=== PATIENT | female | born 1950 | race Caucasian/White ===

== ENCOUNTER → 2018-08-01 09:07 | Outpatient (CLI) | payer MEDICARE, OTHER, SELFPAY ==
--- NOTE | 2018-08-01 | DI.ECHO.S_ITS ---
[place]---------+ [facility] +---------+ : : [address] : [address] [place] : : : : [id number] : : : : Phone: [phone]+ Echocardiogram Report + + :Name: BING VAUGHN Study Date: 08/01/2018 Height: 64 in : :[facility] Weight: 177 lb : : Gender: Female BSA: 1.9 m2 : :: 1950 Age: 67 yrs BP: 158/98 mmHg: :Reason For Study: Murmur : : Performed By: Lucia Massey : :Referring: MIGUEL WEBB L : + + Interpretation Summary 1) Normal left ventricular thickness, size, wall motion and systoilc function (EF 60-65%). 2) Normal right ventricular size and function grossly. 3) There is mild to moderate mitral regurgitation. 4) The right ventricular systolic pressure is estimated to be at least 42 mmHg based on an estimated right atrial pressure of 3 mm Hg. 5) No prior Echo available for comparison. Procedure: A two-dimensional transthoracic echocardiogram with color flow and Doppler was performed. The study quality was technically adequate. There is no prior echocardiogram noted for this patient. The patient was in normal sinus rhythm during the exam. Left Ventricle: The left ventricle is normal in size, wall thickness, and systolic function without any focal wall motion abnormalities. The ejection fraction is estimated to be 60-65%. Diastolic parameters suggest a pseudonormalization pattern, consistent with probable elevated filling pressures. Right Ventricle: The right ventricle grossly appears normal in size with probable normal systolic function. Atria: The left atrial size is normal. Right atrial size is normal. The interatrial septum is intact with no evidence for an atrial septal defect. Mitral Valve: The mitral valve leaflets appear borderline thickened, but open well. The mitral valve leaflets are mildly calcified. There is mild to moderate mitral regurgitation. Aortic Valve: The aortic valve is trileaflet. The aortic valve opens well. There is no aortic valve stenosis. No aortic regurgitation is present. Tricuspid Valve: The tricuspid valve leaflets are thin and pliable. There is mild tricuspid regurgitation. The right ventricular systolic pressure is estimated to be at least 42 mmHg based on an estimated right atrial pressure of 3 mm Hg. Pulmonic Valve: The pulmonic valve is normal in structure and function. There is no pulmonic valvular regurgitation. Great Vessels: The aortic root is normal size. The dimensions of the ascending aorta are normal. The IVC is of normal diameter and collapses greater than 50% with a sniff. This suggests a low right atrial pressure of 3 mm Hg. Pericardium/ Pleura There is no pericardial effusion. There is no pleural effusion. MMode/2D Measurements & Calculations LVIDd: 4.5 cm Ao root diam: 2.7 cm LVIDs: 2.9 cm Aortic Jxn: 2.6 cm FS: 34.6 % asc Aorta Diam: 3.0 cm EPSS: 0.65 cm Ao Arch Diam (Prox Trans): 2.4 cm IVSd: 0.87 cm LVPWd: 0.80 cm LV yates. diameter/BSA (cm/m^2): 2.4 LV sys. diameter/BSA (cm/m^2): 1.6 LA dimension: 3.3 cm RA long axis: 5.0 cm LA A2 area: 19.4 cm2 RA area: 15.1 cm2 LA A4 area: 19.1 cm2 RA vol: 39.2 ml LA length (vol): 5.2 cm RA : 21.1 ml/m2 LA vol: 60.2 ml IVC diam: 1.4 cm LA vol index: 32.4 ml/m2 RVDd major: 4.9 cm RVD1 (basal): 3.0 cm RVD2 (mid): 2.6 cm Doppler Measurements & Calculations Ao V2 max: 177.7 cm/sec MV E max tomas: 76.8 cm/sec Ao V2 mean: 112.0 cm/sec MV A max tomas: 103.2 cm/sec Ao max P.6 mmHg MV E/A: 0.74 Ao mean P.0 mmHg Med Peak E' Tomas: 6.2 cm/sec Ao V2 VTI: 39.1 cm E/E' med: 12.4 Lat Peak E' Tomas: 7.8 cm/sec E/E' lat: 9.9 E/e' average: 11.1 MV dec time: 0.24 sec MV P1/2t: 72.9 msec MR ERO: 0.14 cm2 TR max tomas: 292.9 cm/sec MV P1/2t max tomas: 77.2 cm/sec TR max P.4 mmHg MVA(P1/2t): 3.0 cm2 PA V2 max: 112.3 cm/sec PA V2 mean: 71.1 cm/sec PA mean P.4 mmHg PA Accel Time: 0.14 sec MR flow rate: 88.8 cm3/sec MR PISA radius: 0.60 cm Reading Physician:01:10 PM
--- NOTE | 2018-08-01 | DI.MG.S_ITS ---
BILATERAL DIGITAL SCREENING MAMMOGRAM 3D/2D WITH CAD: 08/01/2018 CLINICAL: Routine screening. Family history of breast cancer. Comparison is made to exams dated: 10/20/2016 mammogram, 07/01/2014 mammogram, 11/02/2016 mammogram, 11/02/2016 ultrasound, 05/12/2017 mammogram, and 05/12/2017 ultrasound - [facility]. The tissue of right breast is heterogeneously dense. This may lower the sensitivity of mammography. There are scattered fibroglandular elements in left breast. Current study was also evaluated with a Computer Aided Detection (CAD) system. There is 1 cm oval high density focal asymmetry with an indistinct margin in the left breast upper outer aspect middle depth. This is more prominent than on prior comparison exam. There are also 1.5 cm oval masses in the left breast central to the nipple anterior depth, which are more prominent than on prior comparison exam. IMPRESSION: INCOMPLETE: NEEDS ADDITIONAL IMAGING EVALUATION 1) The 1 cm oval high density focal asymmetry in the left breast upper outer aspect middle depth is indeterminate. Additional views with possible ultrasound are recommended. 2) The 1.5 cm oval masses in the left breast central to the nipple anterior depth may correspond to the cysts seen on comparison ultrasound, but appear more prominent than on prior comparison exams. Additional views with possible ultrasound are recommended. This exam was interpreted at Station ID: [id number]. NOTE: For mammograms, a report in lay terms will be sent to the patient. Approximately 15% of breast malignancies will not be visualized mammographically. In the management of a palpable breast mass, a negative mammogram must not discourage biopsy of a clinically suspicious lesion. Electronically Signed By: Kyle Redd M.D. ecl/:08/02/2018 07:32:55 letter sent: Additional Imaging Needed ACR BI-RADS Category 0: Incomplete 3340F
== END ==
PROVIDERS: PCP Nurse Practitioner Family; Visit Provider Nurse Practitioner Family
DX: Z12.31 Encounter for screening mammogram for malignant neoplasm of breast (principal); Z80.3 Family history of malignant neoplasm of breast; I08.1 Rheumatic disorders of both mitral and tricuspid valves; R01.1 Cardiac murmur, unspecified; M85.852 Other specified disorders of bone density and structure, left thigh; Z78.0 Asymptomatic menopausal state; E07.9 Disorder of thyroid, unspecified; Z90.722 Acquired absence of ovaries, bilateral; Z82.62 Family history of osteoporosis; Z87.891 Personal history of nicotine dependence
CPT/HCPCS: 77063; 77067; 77080; 93306

== ENCOUNTER → 2018-08-29 12:34 | Outpatient (CLI) | payer MEDICARE, OTHER, SELFPAY ==
--- NOTE | 2018-08-29 | DI.US.S_ITS ---
LIMITED ULTRASOUND OF LEFT BREAST: 08/29/2018 CLINICAL: Additional evaluation requested from prior study. Comparison is made to exams dated: 08/29/2018 mammogram, 08/01/2018 mammogram, and 05/12/2017 [facility]. Color flow and real-time ultrasound of the left breast 3 o'clock, and retroareolar regions were performed on the areas of interest. There is 2.7 cm x 0.9 cm x 1.9 cm oval cyst with debris with a smooth internal wall in the left breast central to the nipple anterior depth. This oval cyst with debris is hypoechoic with a well-defined boundary and internal echoes. This correlates with mammography findings. Color flow imaging demonstrates that there is no vascularity present. There also is 0.9 cm x 0.6 cm x 0.7 cm oval cyst with debris with a smooth internal wall in the left breast at 3 o'clock anterior depth. This oval cyst with debris is hypoechoic with a well-defined boundary and internal echoes. This correlates with mammography findings. Color flow imaging demonstrates that there is no vascularity present. IMPRESSION: PROBABLY BENIGN The 2.7 cm x 0.9 cm x 1.9 cm oval cyst with debris in the left breast central to the nipple anterior depth is consistent with a complicated cyst and is probably benign. A follow-up ultrasound in 6 months is recommended. The 0.9 cm x 0.6 cm x 0.7 cm oval cyst with debris in the left breast at 3 o'clock anterior depth is consistent with a complicated cyst and is probably benign. A follow-up ultrasound in 6 months is recommended. A follow-up ultrasound in 6 months is recommended to demonstrate stability. This exam was interpreted at Station ID: [id number]. Electronically Signed By: Markus barboza/erma:08/29/2018 17:25:56 letter sent: Followup Recommended Ultrasound BI-RADS: 3 Probably benign
--- NOTE | 2018-08-29 | DI.MG.S_ITS ---
UNILATERAL LEFT DIGITAL DIAGNOSTIC MAMMOGRAM 3D/2D WITH ADDITIONAL VIEWS: 08/29/2018 CLINICAL: Additional evaluation requested from prior study. Comparison is made to exams dated: 08/01/2018 mammogram, 05/12/2017 mammogram, 11/02/2016 mammogram, and 10/20/2016 mammogram - [facility]. The tissue of left breast is heterogeneously dense. This may lower the sensitivity of mammography. There is 2.5 cm oval equal density mass with an obscured and circumscribed margin in the left breast central to the nipple anterior depth. There also is 0.9 cm oval equal density mass with an obscured and circumscribed margin in the left breast at 3 o'clock anterior depth. No other significant masses or calcifications are seen in the breast. IMPRESSION: INCOMPLETE: NEEDS ADDITIONAL IMAGING EVALUATION The 2.5 cm oval equal density mass in the left breast central to the nipple anterior depth is indeterminate. An ultrasound is recommended. The 0.9 cm oval equal density mass in the left breast at 3 o'clock anterior depth is indeterminate. An ultrasound is recommended. This exam was interpreted at Station ID: [id number]. NOTE: For mammograms, a report in lay terms will be sent to the patient. Approximately 15% of breast malignancies will not be visualized mammographically. In the management of a palpable breast mass, a negative mammogram must not discourage biopsy of a clinically suspicious lesion. Electronically Signed By: Markus barboza/erma:08/29/2018 13:40:54 letter sent: Need Ultrasound ACR BI-RADS Category 0: Incomplete 3340F
== END ==
PROVIDERS: PCP Nurse Practitioner Family; Visit Provider Nurse Practitioner Family
DX: R92.8 Other abnormal and inconclusive findings on diagnostic imaging of breast (principal); N60.02 Solitary cyst of left breast
CPT/HCPCS: 76642; 77065; G0279

== ENCOUNTER → 2019-09-17 13:06 | Outpatient (CLI) | payer MEDICARE, OTHER, SELFPAY ==
--- NOTE | 2019-09-17 | DI.US.S_ITS ---
ULTRASOUND OF LEFT BREAST: 09/17/2019 CLINICAL: 6 month follow-up of cysts. Comparison is made to exams dated: 09/17/2019 mammogram, 08/29/2018 ultrasound, 08/29/2018 mammogram, 08/01/2018 mammogram, 05/12/2017 ultrasound, and 05/12/2017 mammogram - [facility]. Color flow and real-time ultrasound of the left breast were performed. Mendoza scale images of the real-time examination were reviewed. Redemonstration of a 2.7 cm x 2.3 cm x 1.6 cm oval cyst with mobile debris with a smooth internal wall in the left breast central to the nipple anterior depth. This oval cyst with debris is hypoechoic with a well-defined boundary, internal echoes, and posterior acoustic enhancement. This abnormality is increased in size and correlates with mammography and prior ultrasound findings. Color flow imaging demonstrates that there is no vascularity present. There also is a 0.8 cm x 0.6 cm x 0.4 cm oval cyst with debris with a smooth internal wall in the left breast at 3 o'clock anterior depth 2 cm from the nipple. This oval cyst with debris is hypoechoic with a well-defined boundary and internal echoes. This abnormality is decreased in size and correlates with mammography findings. Color flow imaging demonstrates that there is no vascularity present. IMPRESSION: PROBABLY BENIGN The 2.7 cm x 2.3 cm x 1.6 cm oval cyst with debris in the left breast central to the nipple anterior depth is consistent with a complicated cyst and is probably benign. The 0.8 cm x 0.6 cm x 0.4 cm oval cyst with debris in the left breast at 3 o'clock anterior depth is consistent with a complicated cyst and is probably benign. A follow-up left mammogram and a left ultrasound in 6 months is recommended to demonstrate stability. This exam was interpreted at Station ID: [id number]. Electronically Signed By: Jose C Cantrell M.D. aty/:09/17/2019 15:02:24 letter sent: Followup Recommended Ultrasound BI-RADS: 3 Probably benign
--- NOTE | 2019-09-17 | DI.MG.S_ITS ---
BILATERAL DIGITAL DIAGNOSTIC MAMMOGRAM 3D/2D: 09/17/2019 CLINICAL: One year follow up. Comparison is made to exams dated: 08/29/2018 mammogram, 08/01/2018 mammogram, 05/12/2017 mammogram, 11/02/2016 mammogram, and 10/20/2016 mammogram - [facility]. The tissue of both breasts is heterogeneously dense. This may lower the sensitivity of mammography. There are benign diffuse calcifications in both breasts that are not significantly changed. There is a 2.5 cm oval equal density mass with an obscured and circumscribed margin in the left breast central to the nipple anterior depth. This is more prominent and increased in size. There also is a 0.6 cm oval equal density mass with an obscured and circumscribed margin in the left breast at 3 o'clock anterior depth. This is less prominent and decreased in size. No other significant masses, calcifications, or other findings are seen in either breast. IMPRESSION: INCOMPLETE: NEEDS ADDITIONAL IMAGING EVALUATION The enlarging 2.5 cm oval equal density mass in the left breast central to the nipple anterior depth is indeterminate. An ultrasound is recommended. The 0.6 cm oval equal density mass in the left breast at 3 o'clock anterior depth is indeterminate. An ultrasound is also recommended. The recommended ultrasound is scheduled to immediately follow this study. This exam was interpreted at Station ID: [id number]. NOTE: For mammograms, a report in lay terms will be sent to the patient. Approximately 15% of breast malignancies will not be visualized mammographically. In the management of a palpable breast mass, a negative mammogram must not discourage biopsy of a clinically suspicious lesion. Electronically Signed By: Jose C Cantrell M.D. aty/:09/17/2019 14:47:36 ACR BI-RADS Category 0: Incomplete 3340F
== END ==
PROVIDERS: PCP Nurse Practitioner Family; Referring Provider Family Medicine; Visit Provider Family Medicine
DX: R92.8 Other abnormal and inconclusive findings on diagnostic imaging of breast (principal); N60.02 Solitary cyst of left breast; Z78.0 Asymptomatic menopausal state; M85.852 Other specified disorders of bone density and structure, left thigh; E07.9 Disorder of thyroid, unspecified; Z90.722 Acquired absence of ovaries, bilateral; Z82.62 Family history of osteoporosis
CPT/HCPCS: 76642; 77066; 77080; G0279

== ENCOUNTER → 2022-09-20 11:05 | Outpatient (CLI) | payer MEDICARE, OTHER, SELFPAY ==
--- NOTE | 2022-09-20 | DI.US.S_ITS ---
ULTRASOUND OF LEFT BREAST: 09/20/2022 CLINICAL: Late follow-up of cysts. Comparison is made to exams dated: 09/20/2022 mammogram, 09/17/2019 ultrasound, 09/17/2019 mammogram, 08/29/2018 ultrasound, 08/29/2018 mammogram, and 08/01/2018 mammogram - [facility]. Color flow and real-time ultrasound of the left breast were performed. Mendoza scale images of the real-time examination were reviewed. There is a stable benign 2.7 cm x 2.3 cm x 1.6 cm oval cyst with debris with a smooth internal wall in the left breast central to the nipple anterior depth. This oval cyst with debris is hypoechoic with a well-defined boundary, internal echoes, and posterior acoustic enhancement. There also is a stable benign 0.8 cm x 0.6 cm x 0.4 cm oval cyst with debris with a smooth internal wall in the left breast at 3 o'clock anterior depth 2 cm from the nipple. This oval cyst with debris is hypoechoic with a well-defined boundary and internal echoes. This correlates with mammography findings. Color flow imaging demonstrates that there is no vascularity present. IMPRESSION: BENIGN There is no sonographic evidence of malignancy. The stable 2.7 cm x 2.3 cm x 1.6 cm oval cyst with debris in the left breast central to the nipple anterior depth is consistent with a complicated cyst and is benign. The stable 0.8 cm x 0.6 cm x 0.4 cm oval cyst with debris in the left breast at 3 o'clock anterior depth is consistent with a complicated cyst and is benign. A 1 year screening mammogram is recommended. This exam was interpreted at Station ID: [id number]. Electronically Signed By: Peng Vargas M.D., jr/erma:09/20/2022 14:16:04 letter sent: Normal Exam Ultrasound BI-RADS: 2 Benign
--- NOTE | 2022-09-20 | DI.MG.S_ITS ---
BILATERAL DIGITAL DIAGNOSTIC MAMMOGRAM 3D/2D: 09/20/2022 CLINICAL: Short term follow up for the left breast. Due bilateral. Comparison is made to exams dated: 09/17/2019 ultrasound, 09/17/2019 mammogram, 08/29/2018 ultrasound, 08/29/2018 mammogram, and 08/01/2018 mammogram - [facility]. Both breasts are heterogeneously dense, which may obscure small masses (category c / 51-75% glandular tissue). There are benign diffuse calcifications in both breasts that are not significantly changed. There is a 2.5 cm oval equal density mass with an obscured and circumscribed margin in the left breast central to the nipple anterior depth. This is not significantly changed. There also is a 0.6 cm oval equal density mass with an obscured and circumscribed margin in the left breast at 3 o'clock anterior depth. This is not significantly changed. No other significant masses, calcifications, or other findings are seen in either breast. IMPRESSION: INCOMPLETE: NEEDS ADDITIONAL IMAGING EVALUATION The 2.5 cm oval equal density mass in the left breast central to the nipple anterior depth is indeterminate. An ultrasound is recommended. An ultrasound is recommended for further evaluation and is scheduled to immediately follow this study. The 0.6 cm oval equal density mass in the left breast at 3 o'clock anterior depth is indeterminate. An ultrasound is recommended. Based on the Tyrer Cuzick model (a risk assessment model) the patient's lifetime risk is 13.2% and her 10 year risk is 7.9%. According to the ACR, ACS, and NCCN guidelines, an annual breast MRI exam along with mammogram is recommended if the patient's lifetime risk is 20% or greater. This exam was interpreted at Station ID: [id number]. NOTE: For mammograms, a report in lay terms will be sent to the patient. Approximately 15% of breast malignancies will not be visualized mammographically. In the management of a palpable breast mass, a negative mammogram must not discourage biopsy of a clinically suspicious lesion. Electronically Signed By: Peng Vargas M.D., jr/erma:09/20/2022 14:15:18 ACR BI-RADS Category 0: Incomplete 3340F
--- NOTE | 2022-09-20 11:27 | DI.DEXA.S_ITS ---
Indication: osteopenia; Referring Provider: MIGUEL WEBB Study: Bone densitometry was performed. Exam Date: September 20, 2022 Accession number: [id number] Bone Density: Region BMD T-score Z-score Classification AP Spine(L1, L2, L3) 1.082 0.6 2.6 Normal Femoral Neck (Left) 0.755 -0.8 0.9 Normal Total Hip (Left) 0.846 -0.8 0.7 Normal Femoral Neck (Right) 0.748 -0.9 0.9 Normal Total Hip (Right) 0.854 -0.7 0.8 Normal Total Hip Mean 0.850 -0.8 0.8 Normal World Health Organization criteria for BMD impression classify patients as: Normal (T-score at or above -1.0), Osteopenia (T-score between -1.0 and -2.5), or Osteoporosis (T-score at or below -2.5). 10-year Fracture Risk: FRAX not reported because: All T-scores for Spine Total, Hip Total, Femoral Neck at or above -1.0 Previous Exams: -- Region Exam Age BMD T-score BMD Change BMD Change Date g/cm2 vs Baseline vs Previous -- AP Spine (L1-L3) 09/20/2022 71 1.082 0.6 0.112 (11.5%)# 0.112 (11.5%)# 09/17/2019 68 0.970 -0.4 Total Hip(Left) 09/20/2022 71 0.846 -0.8 0.038 (4.7%)# 0.038 (4.7%)# 09/17/2019 68 0.808 -1.1 Total Hip(Right) 09/20/2022 71 0.854 -0.7 0.040 (4.9%)# 0.040 (4.9%)# 09/17/2019 68 0.814 -1.0 -- *Denotes significance at 95% confidence level, LSC for AP Spine = 0.022 g/cm2, LSC for Total Hip = 0.027 g/cm2 # Denotes dissimilar scan types or analysis methods Impression: The patient has normal bone mass. No significant bone loss was observed. Discussion: BONE DENSITY IS ABOVE THE MINIMUM DESIRABLE LEVEL AT ALL SKELETAL SITES TESTED. This patient?s bone mineral density is above the minimum desirable level (T-score -1.0 or better) at all sites measured. The patient should follow a healthful lifestyle (good nutrition with adequate calcium and vitamin D, and appropriate weight-bearing exercise). Follow-Up: Consider repeating this study in 5 years or sooner if there is some new clinical indication. Reported by: Fitz Cardona M.D. on 09/20/2022 11:34:00 AM.
== END ==
PROVIDERS: PCP Nurse Practitioner Family; Referring Provider Nurse Practitioner Family; Visit Provider Nurse Practitioner Family
DX: R92.8 Other abnormal and inconclusive findings on diagnostic imaging of breast (principal); Z78.0 Asymptomatic menopausal state; N60.02 Solitary cyst of left breast; Z90.710 Acquired absence of both cervix and uterus
CPT/HCPCS: 76642; 77066; 77080; G0279

== ENCOUNTER → 2022-11-10 10:56 | Outpatient (CLI) | payer MEDICARE, OTHER, SELFPAY ==
--- NOTE | 2022-11-10 | DI.US.S_ITS ---
PROCEDURE: US PERIPH VENOUS LOW EXTREM LT INDICATIONS: LEG SWELLING / RULE OUT DVT TECHNIQUE: Real-time imaging, as well as color and pulse Doppler interrogation, were performed of the lower extremity deep veins from the inguinal ligament to the popliteal fossa. COMPARISON: None. FINDINGS: The common femoral, femoral and popliteal veins are normally compressible, and free of intraluminal thrombus. Color and pulse Doppler demonstrate normal phasic intraluminal flow. There is normal augmentation response to distal compression maneuver. IMPRESSION: No deep venous thrombosis identified within the left lower extremity. Dictated by: Jhonatan Jimenez Rj Interpreted: Ronal Ratliff MD on 11/10/2022 at 12:19 Transcribed by: ALBERTO on 11/10/2022 at 12:20 Approved by: Ronal Ratliff M.D. on 11/10/2022 at 16:28
== END ==
PROVIDERS: PCP Nurse Practitioner Family; Referring Provider Orthopaedic Surgery; Visit Provider Orthopaedic Surgery
DX: M79.89 Other specified soft tissue disorders (principal)
CPT/HCPCS: 93971

== ENCOUNTER → 2024-10-01 08:06 | Outpatient (CLI) | payer MEDICARE, OTHER, SELFPAY ==
--- NOTE | 2024-10-01 08:09 | DI.MG.S_ITS ---
MM screening mammo BI: 10/01/2024. BI-RADS: 2 CLINICAL: 73-year old female for bilateral screening mammogram. Tyrer-Cuzick lifetime risk of 5.8%. No personal or first-degree family history of breast cancer. Current reported family history of breast cancer: paternal aunt. PRIOR EXAMS 09/20/2022, 09/17/2019, 08/29/2018, 08/01/2018, 05/12/2017, 11/02/2016, 10/20/2016. MAMMOGRAPHY TECHNIQUE: 2D and 3D (tomosynthesis) digital mammographic views obtained, with additional images as needed for full coverage. Current study was also evaluated with a Computer Aided Detection (CAD) system. DENSITY B. There are scattered areas of fibroglandular density. MAMMOGRAPHY FINDINGS Bilateral: Benign-appearing calcifications noted. There are no suspicious masses, calcifications, or other findings in the breast. No significant change from comparison. IMPRESSION: * No evidence of malignancy with benign findings. RECOMMENDATIONS Bilateral * Annual screening mammography. OVERALL ASSESSMENT CATEGORY BI-RADS-2: Benign. The [employer] recommends annual screening mammography beginning at age 40 for women with average risk of breast cancer. ELECTRONICALLY SIGNED: Pascale Black M.D. on 10/01/2024 at 12:41:48 PM PT Interpreting Station ID: [id number]
== END ==
LOC: MAMMO 08:08
PROVIDERS: PCP Family Medicine; Referring Provider Family Medicine; Visit Provider Family Medicine
DX: Z12.31 Encounter for screening mammogram for malignant neoplasm of breast (principal); Z80.3 Family history of malignant neoplasm of breast
CPT/HCPCS: 77063; 77067

== ENCOUNTER → 2025-04-22 13:29 | Outpatient (CLI) | payer MEDICARE, OTHER, SELFPAY ==
--- NOTE | 2025-04-22 | DI.CT.S_ITS ---
PROCEDURE: CT LUMBAR SPINE WO CON INDICATIONS: Spondylosthesis, Globus protocol TECHNIQUE: Noncontrast 3 mm thick sections acquired from the T12 level to the sacrum. Sagittal and coronal reformats were constructed. For radiation dose reduction, the following was used: automated exposure control. COMPARISON: [facility], MR, MR LUMBAR SPINE WO CON, 03/12/2025, 11:29. FINDINGS: Image quality: Excellent. Bones: Grade 1 anterolisthesis L2 on L3, L3 on L4. No acute vertebral body compression fractures. No suspicious lytic or blastic bony lesions. No pars defects. Multilevel degenerative disc disease and facet arthrosis. This is most prominent at L2-3, L3-4, L4-5 . Severe spinal canal narrowing at L2-3 . Moderate to severe spinal canal narrowing at L3-4. Osseous fusion at L3-4. Soft tissues: No retroperitoneal masses or hematomas. Visualized aorta is normal in caliber. IMPRESSION: Multilevel degenerative disc disease and facet arthrosis, without significant interval change from 03/12/2025. Dictated by: Freddie Kan M.D. on 04/23/2025 at 17:39 Approved by: Freddie Kan M.D. on 04/23/2025 at 17:41
== END ==
PROVIDERS: PCP Physician Assistant; Referring Provider Physician Assistant Surgical; Visit Provider Physician Assistant Surgical
DX: M47.26 Other spondylosis with radiculopathy, lumbar region (principal); M51.16 Intervertebral disc disorders with radiculopathy, lumbar region; M43.16 Spondylolisthesis, lumbar region; M48.061 Spinal stenosis, lumbar region without neurogenic claudication
CPT/HCPCS: 72131